=== PATIENT | male | born 1960 | race Caucasian/White ===

== ENCOUNTER 2020-02-06 04:24 | Emergency (ER) | payer BC, SELFPAY ==
--- NOTE | ~2020-02-06 | CT_ITS ---
EXAMINATION: CT brain wo con EXAM DATE: 02/06/2020 05:20 INDICATION: Head injury. TECHNIQUE: Spiral CT of the head was performed without contrast. Axial, coronal and sagittal images were reviewed. The dose-length product (DLP) for this examination was 605.33 mGy-cm. The exposure w as tailored according to patient size, and iterative reconstruction (ASIR) was used as additional dos e reduction technique. There is no prior study for comparison. FINDINGS: There is no acute intraparenchymal hemorrhage. No evidence of intraparenchymal brain mass lesion. No evidence of acute infarction. There is no mass effect or midline shift. The ventricles are normal in size. There are no extra-axial collections. There are no acute calvarial fractures. T he orbits are unremarkable. Soft tissue is unremarkable. The visualized sinuses and mastoid air dipesh ls are well aerated. IMPRESSION: 1. No acute intracranial findings. Reviewed, dictated and finalized at location A. [facility]
[2020-02-06 04:29] VITALS: BP 176/118; PULSE 95; RESP 16; TEMP 36.9; O2SAT 98
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
[2020-02-06 06:20] VITALS: BP 131/88; PULSE 74; RESP 16; O2SAT 97
== END 2020-02-06 06:20 | disposition home or self-care (01) ==
PROVIDERS: Emergency Provider Emergency Medicine
DX: S01.01XA Laceration without foreign body of scalp, initial encounter (principal); F17.200 Nicotine dependence, unspecified, uncomplicated; Y00.XXXA Assault by blunt object, initial encounter
CPT/HCPCS: 12002; 70450; 99284